=== PATIENT | female | born 1970 | race Caucasian/White ===

== ENCOUNTER 2017-03-06 11:00 | Emergency (ER) | payer BC ==
[2017-03-06 11:55] VITALS: BP 146/94
[2017-03-06] MEDS ORDERED: Iohexol 300* (CONTRAST) 10 ML SDV IV ONE (12:33)
--- NOTE | 2017-03-06 13:49 | RAD ---
INDICATION: RIGHT lower quadrant pain. Question diverticulitis. Nausea and vomiting. Fever. Bloating. COMPARISON: No relevant prior exams available on the [facility] for comparison. TECHNIQUE: Multidetector CT images were obtained from the lung bases to the ischial tuberosities with 71 mL Omnipaque 300 IV and oral contrast. Multiplanar reformation. REPORT: Unremarkable visualized inferior thorax. 1.2 cm maximum dimension sharply circumscribed hypodense lesion at the dome of the RIGHT posterior hepatic segment and similar morphology 0.7 cm subcapsular lesion at the LEFT lateral hepatic segment while nonspecific most likely representing cysts or hemangiomas. Negative for biliary dilatation. No CT abnormality of the gallbladder, pancreas, spleen. Negative for CT abnormality of the upper GI, small bowel, appendix visualized extending anterior and cephalad from the cecum with the tip seen at the LEFT parasagittal midline at the level of the pelvic inlet. Enteric contrast extends to the hepatic flexure of the colon. No CT abnormality of the colon. Negative for ascites or free air. Small fat-containing umbilical hernia without inflammatory change. Normal adrenal glands. Severe LEFT hydronephrosis is traced to a 0.9 cm ureteral pelvic junction stone. Associated perinephric inflammatory stranding and delayed LEFT nephrogram and pyelogram. Additional 0.5 cm LEFT mid pole calyceal stone and 0.5 cm lower pole calyceal stones. Simple cortical cyst lower pole RIGHT kidney. No suspicious focal renal lesions. Unremarkable ureters and distended urinary bladder as well as the anteverted uterus and adnexal regions. Negative for lymphadenopathy. Normal diameter abdominal aorta and iliac arteries. Physiologic distention of the IVC. Negative for suspicious osseous lesions. IMPRESSION: 1. Severe LEFT hydronephrosis is traced to a 0.9 cm ureteral pelvic junction stone. Associated perinephric inflammatory stranding and delayed LEFT nephrogram and pyelogram. Additional 0.5 cm LEFT mid pole calyceal stone and 0.5 cm lower pole calyceal stones. 2. Consider nonemergent RIGHT upper quadrant ultrasound to further assess the noted relative low suspicion focal hepatic lesions most likely representing cysts or hemangiomas.
--- NOTE | 2017-03-06 14:15 | UC ---
Abdominal Pain Female HPI - HPI Summary HPI Summary: LEFT SIDE ABDOMINAL PAIN X 4 DAYS NO RADIATION OF PAIN PAIN IS SEVER, WORSE WITH LYING DOWN, + NAUSEA , NO VOMITING, NO URINARY SX - History of Current Complaint Chief Complaint: UCAbdominalPain Stated Complaint: ABD PAIN Time Seen by Provider: 03/06/17 11:24 Hx Obtained From: Patient Hx Last Menstrual Period: 03/02/17 ?: No Onset/Duration: Gradual Onset, Lasting Days - 4, Still Present Timing: Constant Severity Initially: Moderate Severity Currently: Severe Location: Discrete At: LLQ Radiates: No Character: Colicy Aggravating Factor(s): Food, Movement Alleviating Factor(s): Nothing Associated Signs and Symptoms: Positive: Decreased Appetite, Nausea. Negative: Diaphoresis, Fever, Cough, Chest Pain, Dizzy, Back Pain, Constipation, Blood in Stool, Urinary Symptoms, Vaginal Bleeding, Vaginal Discharge, Vomiting, Diarrhea Allergies/Adverse Reactions: Allergies Allergy/AdvReac Type Severity Reaction Status Date / Time No Known Allergies Allergy Verified 03/06/17 11:12 Home Medications: Home Medications Butalb/Acetamin/Caff TAB* [Fioricet TAB*] 1 tab PO Q6H PRN 03/06/17 [History Confirmed 03/06/17] Digestive Bitters 03/06/17 [History] Tretinoin [Retin-A] 0.1 % EX 03/06/17 [History] Vit B12 03/06/17 [History] PMH/Surg Hx/FS Hx/Imm Hx Previously Healthy: Yes - Surgical History Surgical History: Yes Surgery Procedure, Year, and Place: UTERINE ABLATION - Family History Known Family History: Negative: Blood Disorder - Social History Alcohol Use: None Substance Use Type: None Smoking Status (MU): Never Smoked Tobacco Review of Systems Constitutional: Negative Skin: Negative Eyes: Negative ENT: Negative Respiratory: Negative Gastrointestinal: Abdominal Pain, Nausea Genitourinary: Negative Is Patient Immunocompromised?: No All Other Systems Reviewed And Are Negative: Yes Physical Exam Triage Information Reviewed: Yes Appearance: Well-Nourished, Pain Distress Vital Signs: Initial Vital Signs Temp 99.6 F 03/06/17 11:15 Pulse 78 03/06/17 11:15 Resp 16 03/06/17 11:15 BP 146/94 03/06/17 11:15 Pulse Ox 100 03/06/17 11:15 Vital Signs Reviewed: Yes Eyes: Positive: Conjunctiva Clear ENT: Positive: Normal ENT inspection, Hearing grossly normal, Pharynx normal Neck exam: Normal Neck: Positive: Supple, Nontender, No Lymphadenopathy Respiratory: Positive: Chest non-tender, Lungs clear, Normal breath sounds Cardiovascular: Positive: RRR, No Murmur, Pulses Normal Abdomen Description: Positive: Soft, Other: - TENDERNESS LLQ. Negative: CVA Tenderness (R), CVA Tenderness (L), Distended, Guarding Bowel Sounds: Positive: Present Musculoskeletal: Positive: Strength Intact, ROM Intact, No Edema Skin Exam: Normal Diagnostics - Laboratory Diagnostic Studies Completed/Ordered: CT ABD/PELVIC. 1. Severe LEFT hydronephrosis is traced to a 0.9 cm ureteral pelvic junction stone. Associated perinephric inflammatory stranding and delayed LEFT nephrogram and pyelogram. Additional 0.5 cm LEFT mid pole calyceal stone and 0.5 cm lower pole calyceal stones. 2. Consider nonemergent RIGHT upper quadrant ultrasound to further assess the noted. relative low suspicion focal hepatic lesions most likely representing cysts or. hemangiomas. Abd Pain Female Course/Dx - Course Course Of Treatment: WILL HAVE THE PT. GO TO [facility] FOR [place]AL AND TX - Differential Dx/Diagnosis Provider Diagnoses: LEFT RENAL COLIC. HYDRONEPHROSIS LEFT KIDNEY Discharge - Discharge Plan Condition: Stable Disposition: HOME Patient Education Materials: Renal Colic (ED), Hydronephrosis (ED) Referrals: Salena Wilson MD [Primary Care Provider] - Additional Instructions: CT ABD/ PELVIC : 1. Severe LEFT hydronephrosis is traced to a 0.9 cm ureteral pelvic junction stone. Associated perinephric inflammatory stranding and delayed LEFT nephrogram and pyelogram. Additional 0.5 cm LEFT mid pole calyceal stone and 0.5 cm lower pole calyceal stones. 2. Consider nonemergent RIGHT upper quadrant ultrasound to further assess the noted relative low suspicion focal hepatic lesions most likely representing cysts or hemangiomas. PLEASE GO TO [facility] FOR EVAL AND TX OF KIDNEY STONE LEFT SIDE , LARGE STONE 9 MM , + FLUID IN YOUR LEFT KIDNEY DUE TO OBSTRUCTION
== END 2017-03-06 14:15 | disposition home or self-care (01) ==
LOC: UCCORT 11:00
DX: N13.2 Hydronephrosis with renal and ureteral calculous obstruction (principal); Z32.02 Encounter for pregnancy test, result negative; R11.0 Nausea
CPT/HCPCS: 74177; 81003; 84702; 99202; G0463; Q9967

== ENCOUNTER 2017-03-06 15:26 | Day surgery (SDC) | payer BC ==
[2017-03-06] MEDS ORDERED: NS 0.9% 1000 ML* 1,000 ML IV ONE (15:41)
[2017-03-06] MEDS ORDERED: cefTRIAXone(*) 1 GM in NS 0.9% 50 ML* 50 ML IVPB ONE (16:44)
[2017-03-06 16:48] LABS: ABS Basophils 0 10^3/ul (0-0.2); ABS Eosinophils 0 10^3/ul (0-0.6); ABS Lymphocytes 1.1 10^3/ul (1.0-4.8); ABS Monocytes 0.5 10^3/ul (0-0.8); ABS Neutrophils 6.6 10^3/ul (1.5-7.7); ABS Nucleated RBC 0 10^3/ul; Eosinophil % 0.5 % (0-6); Hematocrit 38 % (35-47); Lymphocyte % 13.2 % (25-47); Mean Corpuscular HGB Conc 34 g/dl (31-36); Mean Corpuscular Hemoglobin 30 pg (27-31); Mean Corpuscular Volume 88 fL (80-97); Mean Platelet Volume 8 um3 (7.4-10.4); Nucleated Red Blood Cells % 0.1; Platelet Count 293 10^3/ul (150-450); Red Blood Count 4.34 10^6/ul (4.0-5.4); Red Cell Distribution Width 13 % (10.5-15); White Blood Count 8.3 10^3/ul (3.5-10.8)
[2017-03-06] MEDS ORDERED: cefTRIAXone(*) 2 GM in NS 0.9% 100 ML* 100 ML IVPB ONE (16:51)
[2017-03-06 17:03] LABS: EGFR Non-African American 45.7 (>60)
[2017-03-06] MEDS ORDERED: cefTRIAXone(*) 2 GM ADDV.VIAL IVPB ONE (17:12)
[2017-03-06] MEDS ORDERED: Iohexol 180 (CONTRAST) 10 ML SDV IV ONE (17:31)
[2017-03-06] MEDS ORDERED: Midazolam* 1 MG/ML 2 ML VIAL (2 MG) ONE (17:38)
[2017-03-06] MEDS ORDERED: Propofol* 10 MG/ML 20 ML BTL IV PUSH ONE (17:38)
[2017-03-06] MEDS ORDERED: fentaNYL* 50 MCG/ML 2 ML VIAL (100 MCG VIAL) ONE (17:38)
[2017-03-06] MEDS ORDERED: Ondansetron INJ* 2 MG/ML VIAL ONE (18:06)
[2017-03-06] MEDS ORDERED: DiMENhydriNATE IV* 50 MG/ML VIAL IV PUSH PRN (18:21)
[2017-03-06] MEDS ORDERED: Naloxone* 0.4 MG/ML 1 ML VIAL IV PRN (18:21)
[2017-03-06] MEDS ORDERED: fentaNYL* 50 MCG/ML 2 ML VIAL (100 MCG VIAL) IV PRN (18:21)
[2017-03-06] MEDS ORDERED: HYDROcodone/ACETAMIN 5-325 MG* 1 TAB PO PRN (18:21)
[2017-03-06] MEDS ORDERED: oxyCODONE/Acetamin 5/325 MG* TAB PO PRN ×2 (18:21→18:52)
[2017-03-06] MEDS ORDERED: Ondansetron INJ* 2 MG/ML VIAL IV PRN (18:21)
[2017-03-06] MEDS ORDERED: HYDROmorphone INJ* 1 MG/ML CARPUJECT SYRINGE IV PRN (18:21)
[2017-03-06] MEDS ORDERED: Gentamicin ADULT (*) 160 MG in NS 0.9% 100 ML* 100 ML IVPB ONE (19:00)
[2017-03-06] MEDS ORDERED: CMCS: Solifenacin(NF) 5 MG TAB PO ONE (19:00)
[2017-03-06] MEDS ORDERED: LR IV SCH (19:30)
--- NOTE | 2017-03-06 19:57 | ED ---
Eusebio Chew Angela, scribed for Unique Eric MD on 03/06/17 at 1556 . Abdominal Pain/Female - HPI Summary HPI Summary: This pt is a 46 y/o female presenting to [facility] referred by [facility] for a kidney stone. Pt had a CT abdomen/pelvis with oral and IV contrast at Urgent Care and was found to have a 9 mm stone at the LEFT UPJ with hydronephrosis. (Note indication for the CT states RLQ abd pain, but personal communication with Dr. Cadena and pt confirms that pt's pain is LLQ, and Dr. Cadena's presumptive dx was diverticulitis, which is why he ordered the CT with oral and IV contrast). She reports she woke up 3 days ago (on early Sunday03/03/17) with sharp pain, got up and thought she was constipated so she went to the bathroom. She took motrin and went to sleep that day, but notes she didn't sleep well. Pt woke up again at 06:00 AM on Sunday03/03/17 and vomited 3 times. She states it was the "most painful Sunday." Sunday (2 days ago) and Sunday (yesterday) she didn 't feel well but notes her pain improved. Today this morning pt went to the gym but was not feeling great. At work today she had localized pain, nausea, and felt "feverish." Pt decided to go to Urgent Care to check out her pain. Denies vomiting today. Today pt had Motrin at around 09:30 am. She has not eaten anything all day. She had oral contrast for the CT approx 11:30am. 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 PMHx none. LMP: 3 days ago (she notes it only lasted 2 days). Pt had a uterine ablation and the bleeding is irregular. Pt is currently on Retin-A, B12, and multivitamins. - History of Current Complaint Chief Complaint: EDFlankPain Stated Complaint: LEFT FLANK PAIN Time Seen by Provider: 03/06/17 15:41 Hx Obtained From: Patient Hx Last Menstrual Period: pt had an ablation done in Feb. and has not gotten one yet ?: No Onset/Duration: Gradual Onset, Lasting Days, Still Present Timing: Constant Severity Initially: Moderate Severity Currently: Mild Pain Intensity: 0 Location: Discrete At: LLQ, Flank - left Radiates: No Character: Sharp Aggravating Factor(s): Nothing Alleviating Factor(s): Nothing Associated Signs and Symptoms: Positive: Fever, Nausea. Negative: Vomiting Allergies/Adverse Reactions: Allergies Allergy/AdvReac Type Severity Reaction Status Date / Time No Known Allergies Allergy Verified 03/06/17 15:37 PMH/Surg Hx/FS Hx/Imm Hx Previously Healthy: Yes Endocrine/Hematology History: Denies: Hx Diabetes Cardiovascular History: Denies: Hx Hypertension History: Denies: Hx Dialysis, Hx Renal Disease - Surgical History Surgery Procedure, Year, and Place: UTERINE ABLATION. A few moles removed. 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 Negative: Vomiting Positive: flank pain - left Skin: Negative Neurological: Negative Psychological: Normal All Other Systems Reviewed And Are Negative: Yes Physical Exam - Summary Physical Exam Summary: Appearance: Well-appearing, mild pain distress, Well-nourished, pt sits calmly in the exam room, points with one finger at LLQ to indicate the area of pain Skin: Warm, color reflects adequate perfusion Head: Normal Head/Face inspection Eyes: Conjunctiva clear ENT: Normal ENT inspection Neck: Supple, no nodes, no JVD Respiratory: Lungs clear, Normal breath sounds, no respiratory distress Cardio: RRR, No murmur, pulses normal, brisk capillary refill Abdomen: soft. Mild tenderness on the left mid abdomen. Left flank tenderness. No masses, no guarding, no rebound Bowel sounds: present Musculoskeletal: Strength Intact/ ROM intact. No calf tenderness. No edema. Neuro: Alert, muscle tone normal, facial symmetry, speech normal, sensory/motor intact Psychological: Normal Triage Information Reviewed: Yes Vital Signs On Initial Exam: Initial Vitals Temp Pulse Resp BP Pulse Ox 98.6 F 75 16 145/99 100 03/06/17 15:32 03/06/17 15:32 03/06/17 15:32 03/06/17 15:32 03/06/17 15:32 Vital Signs Reviewed: Yes Diagnostics - Vital Signs Vital Signs Temp Pulse Resp BP Pulse Ox 03/06/17 15:32 98.6 F 75 16 145/99 100 - Laboratory Lab Results: Lab Results 03/06/17 03/06/17 03/06/17 Range/Units 16:28 16:28 16:28 WBC 8.3 (3.5-10.8) 10^3/ul RBC 4.34 (4.0-5.4) 10^6/ul Hgb 13.0 (12.0-16.0) g/dl Hct 38 (35-47) % MCV 88 (80-97) fL MCH 30 (27-31) pg MCHC 34 (31-36) g/dl RDW 13 (10.5-15) % Plt Count 293 (150-450) 10^3/ul MPV 8 (7.4-10.4) um3 Neut % (Auto) 79.8 (38-83) % Lymph % (Auto) 13.2 L (25-47) % Starr % (Auto) 6.1 (1-9) % Eos % (Auto) 0.5 (0-6) % Baso % (Auto) 0.4 (0-2) % Absolute Neuts (auto) 6.6 (1.5-7.7) 10^3/ul Absolute Lymphs (auto) 1.1 (1.0-4.8) 10^3/ul Absolute Monos (auto) 0.5 (0-0.8) 10^3/ul Absolute Eos (auto) 0 (0-0.6) 10^3/ul Absolute Basos (auto) 0 (0-0.2) 10^3/ul Absolute Nucleated RBC 0 10^3/ul Nucleated RBC % 0.1 Sodium 136 (133-145) mmol/L Potassium 3.9 (3.5-5.0) mmol/L Chloride 101 (101-111) mmol/L Carbon Dioxide 28 (22-32) mmol/L Anion Gap 7 (2-11) mmol/L BUN 17 (6-24) mg/dL Creatinine 1.26 H (0.51-0.95) mg/dL Est GFR ( Amer) 58.8 (>60) Est GFR (Non-Af Amer) 45.7 (>60) BUN/Creatinine Ratio 13.5 (8-20) Glucose 84 (70-100) mg/dL Lactic Acid 1.5 (0.5-2.0) mmol/L Calcium 9.3 (8.6-10.3) mg/dL Total Bilirubin 0.80 (0.2-1.0) mg/dL AST 16 (13-39) U/L ALT 8 (7-52) U/L Alkaline Phosphatase 46 (34-104) U/L C-Reactive Protein 14.72 H (< 5.00) mg/L Total Protein 7.2 (6.4-8.9) g/dL Albumin 4.2 (3.2-5.2) g/dL Globulin 3.0 (2-4) g/dL Albumin/Globulin Ratio 1.4 (1-3) Beta HCG, Quant < 0.60 mIU/mL Result Diagrams: 03/06/17 16:28 03/06/17 16:28 Lab Statement: Any lab studies that have been ordered have been reviewed, and results considered in the medical decision making process. - CT Abdomen/Pelvis CT CT Interpretation: Positive (See Comments) - IMPRESSION: 1. Severe LEFT hydronephrosis is traced to a 0.9 cm ureteral pelvic junction stone. Associated perinephric inflammatory stranding and delayed LEFT nephrogram and pyelogram. Additional 0.5 cm LEFT mid pole calyceal stone and 0.5 cm lower pole calyceal stones. 2. Consider nonemergent RIGHT upper quadrant ultrasound to further assess the noted relative low suspicion focal hepatic lesions most representing cysts or hemangiomas. Dr. Eric has reviewed this radiology report. CT Interpretation Completed By: Radiologist Re-Evaluation - Re-Evaluation First Eval Re-Evaluation Time: 16:37 Comment: I discussed plan for OR admission with the pt, for Dr. Arriola to place a ureteral stent. Pt is agreeable. Abdominal Pain Fem Course/Dx - Course Course Of Treatment: Pt medications reviewed this visit. High blood pressure noted. Abdomen/pelvis CT with oral and IV contrast done at [facility], shows severe LEFT hydronephrosis is traced to a 0.9 cm ureteral pelvic junction stone. Associated perinephric inflammatory stranding and delayed LEFT nephrogram and pyelogram. Pt with 2 additional calyceal stones. Pt is afebrile , wbc count is normal and urine does not appear infected by UA. Pt is also made aware of additional findings regarding her liver and the need for outpatient elective US for further evaluation. I discussed pt care with Dr. Arriola, urologist, who will take the pt to the OR for a stent. He wanted to know the pt's NPO status. Pt states the last time she ate was yesterday and the last time she had something to drink was today at noon (CT contrast). Pt is to be NPO from now on. Pt will be given Ceftriaxone 2 grams IV. - Diagnoses Differential Diagnosis: Positive: Bowel Obstruction, Diverticulitis, Renal Colic , Urinary Tract Infection Provider Diagnoses: Elevated blood pressure reading without diagnosis of hypertension, Hydronephrosis, Left UPJ stone - Provider Notifications Discussed Care Of Patient With: Marcell Arriola Time Discussed With Above Provider: 16:30 Instructed by Provider To: Other - I discussed pt care with Dr. Arriola, urologist , who will take the pt to the OR today for a stent. He wants to know the pt's NPO status. Discharge - Discharge Plan Condition: Stable Disposition: ADMITTED TO [facility]charge Disposition Comment: by Dr. Arriola to the OR. The documentation as recorded by the Eusebio schuster Angela accurately reflects the service I personally performed and the decisions made by me, Unique Eric MD.
[2017-03-06 20:06] VITALS: BP 131/88
--- NOTE | 2017-03-06 20:44 | RAD ---
CPT II Codes: 6045F INDICATION: Left-sided hydronephrosis presence of multiple renal calculi TECHNIQUE: Intraoperative fluoroscopy was provided during retrograde nephrostogram and left ureteral stent placement. FINDINGS: 9 spot films depict retrograde nephrostogram, multiple renal calculi in the proximal ureter and collecting system as well as moderate to severe hydronephrosis. The proximal half left ureteral stent is anatomically positioned. Fluoroscopy time: 10 Seconds IMPRESSION: As above.
--- NOTE | 2017-03-06 21:31 | RAD ---
INDICATION: Left renal stent placement COMPARISON: None TECHNIQUE: 2 views the abdomen were obtained. FINDINGS: The left ureteral stent is anatomically aligned. The proximal most portion of the ureteral stent is looped within a left lower pole calyx. Overlying the proximal ureter there is a 7 mm calcification corresponding to the numerous calcifications seen on the preoperative CTA. IMPRESSION: ANATOMIC ALIGNMENT OF LEFT URETERAL STENT. INCIDENTALLY NOTED IS THE PROXIMAL PORTION OF THE STENT IS LOOPED WITHIN A LOWER POLE CALYX.
--- NOTE | 2017-03-06 21:55 | HP ---
CC: Dr. Salena Wilson * ADMITTING HISTORY AND PHYSICAL: DATE OF ADMISSION: 03/06/17 ADMITTING DIAGNOSES: 1. Calculus left ureteropelvic junction. 2. Severe left hydronephrosis. 3. Additional left renal calculi. PLANNED PROCEDURE: Today is left stent insertion (to be followed in near future by lithotripsy). SURGEON: Dr. 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 She is being brought in for urgent left stent insertion to be followed in the near future by lithotripsy. PAST MEDICAL HISTORY: Significant for acne. MEDICATIONS ON ADMISSION: Retin-A for acne. ALLERGIES: No known drug allergies. REVIEW OF SYSTEMS: She denies any chest pain or shortness of breath. There is no history of diabetes mellitus or any other major systemic illness. PHYSICAL EXAMINATION GENERAL: Reveals a pleasant healthy-appearing lady. VITAL SIGNS: Blood pressure is 115/73, pulse 75 per minute and regular, temperature 37 degrees, respirations 16 per minute, oxygen saturation 100% on room air. LUNGS: Clear bilaterally. CARDIOVASCULAR: Regular rate and rhythm. S1, S2. ABDOMEN: Soft with left flank tenderness. DIAGNOSTIC STUDIES/LABORATORY DATA: I reviewed the CT scan, which reveals a fairly large at least 10 to 12 mm calculus at the left ureteropelvic junction with additional left renal calculi. IMPRESSION: I discussed the situation in detail with Dr. Diaz Hsu. I also explained the possibility of this being related to a congenital ureteropelvic junction obstruction although that will be difficult to delineate because of the presence of the large calculus at the UPJ at the present time. I also explained the procedure of left stent insertion (to be followed by lithotripsy) and explained that there is a small chance that I may not be able to safely place the stent because of the very large size of the calculus, in that case she would require a temporary left nephrostomy tube to be followed by lithotripsy. PLAN: Planned procedure is left stent insertion (to be followed by shockwave lithotripsy). [id number]/[facility] #: [id number] [facility]
--- NOTE | 2017-03-07 23:01 | OP ---
CC: Salena Wilson MD * DATE OF OPERATION: 03/06/17 - SDS DATE OF : 70 SURGEON: Dr. Arriola. ANESTHESIA: General. ANESTHESIOLOGIST: Dr. Stinson. PRE-OP DIAGNOSES: 1. Severe left hydronephrosis. 2. Obstructing calculus, left ureteropelvic junction. 3. Left renal calculi. POST-OP DIAGNOSES: 1. Severe left hydronephrosis. 2. Obstructing calculus, left ureteropelvic junction. 3. Left renal calculi. OPERATIVE PROCEDURE: Cystoscopy, left retrograde pyelogram, left ureteral calculus manipulation, and left stent insertion. COMPLICATIONS: None. POSTOPERATIVE CONDITION: Stable. STENT USED: 6-[place] stent, left ureter. OPERATIVE FINDINGS: High-grade obstruction secondary to large calculus impacted at left ureteropelvic junction. INDICATIONS: Mag Hsu is a 46-year-old lady who was evaluated for obstructing calculus of the left uretero-pelvic junction. In addition, she has 2 left renal calculi and is now being brought in for urgent left stent insertion because of the findings of severe left hydronephrosis and the large calculus. She will require lithotripsy in the near future. DESCRIPTION OF PROCEDURE: After induction of general anesthesia, the patient was placed in dorsal lithotomy position. Sequential compression devices were in place and functioning. Initial cystoscopy revealed a normal-appearing bladder with some changes suggestive of cystitis noted throughout the bladder wall. A guidewire was introduced into the left ureter. Retrograde pyelogram revealed limited visualization due to persistent oral and intravenous contrast from the prior CT scan. Left hydronephrosis was demonstrated. The open-ended catheter was advanced to the level of the ureteropelvic junction, so the calculus could be manipulated proximally, which was done. Once this was done, I was able to place a 6-[place] stent under fluoroscopic monitoring with good proximal and distal positioning obtained. The bladder was emptied. The patient tolerated the procedure satisfactorily and was transferred back to the recovery area in stable condition. [id number]/[facility] #: [id number] [facility]
== END 2017-03-06 17:55 | disposition home or self-care (01) ==
LOC: ED 15:26 → OR 17:55
PROVIDERS: ATTEND Urology
DX: N13.2 Hydronephrosis with renal and ureteral calculous obstruction (principal); R10.32 Left lower quadrant pain; R03.0 Elevated blood-pressure reading, without diagnosis of hypertension; R50.9 Fever, unspecified; R11.0 Nausea
CPT/HCPCS: 36415; 74018; 74420; 80053; 83605; 84702; 85025; 86140; 96374; 96376; 99283; C1876; J0696; J1580; J2250; J2405; J2704; J3010

== ENCOUNTER 2017-03-19 12:54 | Day surgery (SDC) | payer BC ==
[~2017-03-19 12:54] MED LIST: Buffered Lidocaine 0.9% SYRIN* 5 ML/SYR SYRINGE INTRADERM ONE; Dexamethasone IV* 4 MG/ML 1 ML (4 MG) IV SLOW PU ONE; Famotidine IV* 10 MG/ML 2 ML (20 mg) IV ONE
[2017-03-19] MEDS ORDERED: Dexamethasone IV* 4 MG/ML 1 ML (4 MG) ONE (13:20)
[2017-03-19] MEDS ORDERED: cefTRIAXone(*) 2 GM ADDV.VIAL IVPB ONE (13:20)
[2017-03-19] MEDS ORDERED: Famotidine IV* 10 MG/ML 2 ML (20 mg) ONE (13:20)
--- NOTE | 2017-03-19 13:45 | RAD ---
INDICATION: ESWL COMPARISON: March 06, 2017 TECHNIQUE: A single view of the abdomen is submitted. FINDINGS: Bones: There are no acute bony findings. Soft tissues: The soft tissues appear normal. The psoas margins are sharp. Bowel gas pattern: Normal Calcifications: There are multiple left-sided renal calculi. The dominant calculus is near the UVJ and measures 9 mm. Upper and lower pole calculi are also present. Other: There is a left ureteral stent in expected position IMPRESSION: LEFT-SIDED NEPHROLITHIASIS
[2017-03-19] MEDS ORDERED: fentaNYL* 50 MCG/ML 2 ML VIAL (100 MCG VIAL) ONE (14:16)
[2017-03-19] MEDS ORDERED: Midazolam* 1 MG/ML 2 ML VIAL (2 MG) ONE (14:16)
[2017-03-19] MEDS ORDERED: Propofol* 10 MG/ML 20 ML BTL IV PUSH ONE (14:17)
[2017-03-19] MEDS ORDERED: Ondansetron INJ* 2 MG/ML VIAL ONE (14:17)
[2017-03-19] MEDS ORDERED: Naloxone* 0.4 MG/ML 1 ML VIAL IV PRN (14:49)
[2017-03-19] MEDS ORDERED: DiMENhydriNATE IV* 50 MG/ML VIAL IV PUSH PRN (14:49)
[2017-03-19] MEDS ORDERED: fentaNYL* 50 MCG/ML 2 ML VIAL (100 MCG VIAL) IV PRN (14:49)
[2017-03-19] MEDS ORDERED: Furosemide IV* 10 MG/ML 2 ML VIAL (20 MG) ONE (15:08)
[2017-03-19 16:33] VITALS: BP 114/73
--- NOTE | 2017-03-19 17:46 | RAD ---
INDICATION: Renal calculi. COMPARISON: Correlation is made with a prior CT of the abdomen and pelvis from March 06, 2017 and a prior KUB from March 19, 2017 from 5 hours earlier. TECHNIQUE: Frontal supine films of the abdomen were obtained. FINDINGS: The small bowel and colon appear nondistended. There is a left ureteral stent catheter present which appears unchanged. There are multiple left renal calculi. The previously noted dominant calculus at the left ureteropelvic junction appears fragmented. IMPRESSION: MULTIPLE LEFT RENAL CALCULI NOTED.
--- NOTE | 2017-03-20 09:44 | OP ---
CC: Dr. Salena Wilson * DATE OF OPERATION: 03/19/17 - SDS DATE OF : 70 SURGEON: Dr. Arriola. ANESTHESIOLOGIST: Dr. Kunz. ANESTHESIA: General. PRE-OP DIAGNOSES: Left ureteral calculus and left renal calculi. POST-OP DIAGNOSES: Left ureteral calculus and left renal calculi. OPERATIVE PROCEDURE: 1. Shock wave lithotripsy of left ureteral calculus. 2. Shock wave lithotripsy of left renal calculi. COMPLICATIONS: None. PREOPERATIVE CONDITION: Stable. INDICATIONS: Mag Hsu is a 46-year-old lady who had undergone urgent left stent insertion because of a large obstructing calculus in the left ureteropelvic junction. In addition, she has left renal calculi and is now being brought in for shock wave lithotripsy. DESCRIPTION OF PROCEDURE: After induction of general anesthesia, the patient was placed on the lithotripsy table in supine position. The dominant calculus in the area of the left urethropelvic junction was first localized using fluoroscopy. Shock wave lithotripsy was commenced at a rate of 90 shocks per minute. Periodic imaging revealed good localization and fragmentation and a total of 1800 shocks were delivered to this calculus. Next attention was directed to the calculi in the left kidney. These were separately identified using fluoroscopy and were targeted with shock wave lithotripsy at a rate of 60 shocks per minute. 800 shocks were delivered to these two calculi together and good fragmentation was observed. The patient tolerated the procedure satisfactorily and was transferred back to the recovery area in stable condition. [id number]/[facility] #: [id number] [facility]
== END 2017-03-19 16:45 | disposition home or self-care (01) ==
LOC: OR 12:54
PROVIDERS: ATTEND Urology
DX: N13.2 Hydronephrosis with renal and ureteral calculous obstruction (principal)
CPT/HCPCS: 74018; 81025; J0696; J1100; J1940; J2250; J2405; J2704; J3010

== ENCOUNTER 2019-04-07 18:16 | Emergency (ER) | payer BC ==
--- OUTSIDE RECORDS SUMMARY | 2019-04-07 18:41 | XMS REPORT | Continuity of Care Document ---
:1970 External Reference #:[id number] Author Name Bhavani Cohen PA Address [address] [address] Care Team Providers Name Role Phone Anthony Pandya MD - Urology Care Team Information Chain Tender [phone] Problems Active Problems Provider Date Vitamin D deficiency Salena Wilson MD Onset: 05/10/2017 Migraine with typical aura Salena Wilson MD Onset: 07/06/2017 Acne Salena Wilson MD Onset: 08/09/2018 Social History Type Date Description Comments Sex Unknown Tobacco Use Start: Unknown Never Smoked Cigarettes ETOH Use Occasionally consumes alcohol Tobacco Use Start: Unknown Patient has never smoked Smoking Status Reviewed: 08/09/18 Patient has never smoked Allergies, Adverse Reactions, Alerts Description No Known Drug Allergies Medications Active Medications SIG Qnty Indications Ordering Provider Date Retin-A apply to face 45gm L70.0 Salena Wilson, 08/09/2018 0.1% Cream once daily Ondansetron 1 po at onset of 60tabs G43.109 Salena Wilson, 08/09/2018 8mg Tablets nausea every 8 MD Dispers hours prn Butalbital/Acetaminop 1 tap by mouth q2 60tabs G43.109 Salena Wilson, hen/Caffeine hours as needed headache 50-325-40mg Tablets Magnesium Citrate not sure on dose Salena Wilson, 03/01/2018 100mg MD Tablets Multivitamin Adult 1 by mouth every Unknown day Tablets Calcium Carbonate 2 by mouth daily Unknown 500mg Chewtabs Vitamin D 1 by mouth every Unknown 1000Unit day Tablets Immunizations CPT Code Status Date Vaccine Reaction Lot # [id number] Given 03/17/2011 Tdap (Adacel) Ages 7 And Above VIS DATE 01/07/08 Only [id number] Refused 06/01/2017 Afluria Or Fluvirin Flu Vac Intramuscular Vital Signs Date Vital Result Comment 02/21/2019 8:19am Body Temperature 99.5 F tympanic Weight 129.00 lb Heart Rate 72 /min BP Systolic 126 mmHg BP Diastolic 80 mmHg Respiratory Rate 16 /min Height 62.50 inches 5'2.50" BMI (Body Mass Index) 23.2 kg/m2 08/09/2018 1:11pm Weight 123.00 lb Heart Rate 78 /min BP Systolic 108 mmHg BP Diastolic 68 mmHg Respiratory Rate 18 /min Height 62.50 inches 5'2.50" O2 % BldC Oximetry 98 % Ra BMI (Body Mass Index) 22.1 kg/m2 Results Test Acquired Date Facility Test Result H/L Range Note Laboratory test finding 02/21/2019 [facility] <pending> Procedures Date Code Description Status 08/14/2017 70890694 Mammogram Completed 07/20/2016 [id number] Mammogram Completed 06/05/2014 [id number] Mammogram Completed Medical Devices Description No Information Available Encounters Type Date Location Provider Dx Diagnosis Office Visit 02/21/2019 8:15a [facility] Bhavani Cohen PA L60.1 Onycholysis Assessments Date Code Description Provider 02/21/2019 L60.1 Onycholysis Bhavani Cohen PA Plan of Treatment Future Appointment(s):08/15/2019 1:00 pm - Salena Wilson MD at [facility]02/21/2019 - Bhavani Cohen PAL60.1 OnycholysisComments:BL great toes with white line distally, L great toe with line laterally ? etiology - may be result of certain shoes, viral infectionThis should slowly grow out with time, watch for healthy nail at the bases, can take several monthsSuggest filing nails as needed, avoiding trauma/irritants/cosmetics, keeping nails dryCall with questions/ concernsFollow up:Prn Functional Status Description No Information Available Mental Status Description No Information Available Referrals Description No Information Available
--- OUTSIDE RECORDS SUMMARY | 2019-04-07 18:41 | XMS REPORT | Continuity of Care Document ---
:1970 External Reference #:[id number] Author Name Satya Diaz M.D (transmitted by agent of provider Iris Menezes) Address [address] [place] [address] Care Team Providers Name Role Phone Salena Wilson MD Care Team Information Chief Wellness Officer [phone] Salena Wilson MD - Family Medicine Care Team Information Chief Wellness Officer [phone] Problems Description No Information Available Social History Type Date Description Comments Sex Unknown Tobacco Use Start: Unknown Never Smoked Cigarettes ETOH Use Current Alcohol Use - 1-3 Days A Week. Recreational Drug Use Never Used Drugs Allergies, Adverse Reactions, Alerts Description No Known Drug Allergies Medications Active Medications SIG Qnty Indications Ordering Provider Date Retin-A 0.05% Unknown Cream Ondansetron 4mg Unknown Tablets Dispers Immunizations Description No Information Available Vital Signs Date Vital Result Comment 04/03/2019 8:06am Weight 123.00 lb Height 62 inches 5'2" BMI (Body Mass Index) 22.5 kg/m2 BP Systolic 123 mmHg BP Diastolic 85 mmHg Heart Rate 78 /min O2 % BldC Oximetry 99 % Body Temperature 98.1 F Monroe Score 9 Neck Circumference in inches 12.5 Pain Level 0 Results Description No Information Available Procedures Description No Information Available Medical Devices Description No Information Available Encounters Description No Information Available Assessments Description No Information Available Plan of Treatment No Information Available Functional Status Description No Information Available Mental Status Description No Information Available Referrals Description No Information Available
--- OUTSIDE RECORDS SUMMARY | 2019-04-07 18:41 | XMS REPORT | Continuity of Care Document ---
:1970 External Reference #:[id number] Author Name Satya Diaz M.D Address [address] [place] [address] Care Team Providers Name Role Phone Salena Wilson MD Care Team Information Order Selector [phone] Salena Wilson MD - Family Medicine Care Team Information Order Selector Problems Description No Information Available Social History Type Date Description Comments Sex Unknown Tobacco Use Start: Unknown Never Smoked Cigarettes Smoking Status Reviewed: 04/04/19 Never Smoked Cigarettes ETOH Use Current Alcohol [...] Oximetry 99 % Body Temperature 98.1 F Estelline Score 9 Neck Circumference in inches 12.5 [...]
[2019-04-07 18:53] VITALS: BP 134/78
[2019-04-07] MEDS ORDERED: Phenazopyridine TAB* 100 MG PO ONE (19:39)
[2019-04-07] MEDS ORDERED: Cephalexin CAP* 500 MG PO ONE (19:39)
--- NOTE | 2019-04-07 19:41 | UC ---
Complaint Female HPI - HPI Summary HPI Summary: 49-year-old woman comes in with a chief complaint of burning with urination urinary frequency for 2 days. Started to have some chills today and not feeling well. Patient does have a history of kidney stones she does not feel like there is any kidney stone going on she does not have any flank pain or abdominal pain. The symptoms remind her of urinary tract infection. - History Of Current Complaint Chief Complaint: UCGU Stated Complaint: URINARY Time Seen by Provider: 04/07/19 19:18 Hx Last Menstrual Period: 03/31/19 Pain Intensity: 0 - Allergies/Home Medications Allergies/Adverse Reactions: Allergies Allergy/AdvReac Type Severity Reaction Status Date / Time No Known Allergies Allergy Verified 04/07/19 18:49 PMH/Surg Hx/FS Hx/Imm Hx Previously Healthy: Yes GI/ History: Kidney Stones - Surgical History Surgical History: Yes Surgery Procedure, Year, and Place: UTERINE ABLATION- 2013- [facility]. lithotripsy r/t kidney stones 2017 - Family History Known Family History: Positive: Cardiac Disease - Mom's side, Respiratory Disease - Paternal grandfather: emphysema, Other - Alzheimer's disease Negative: Blood Disorder - Social History Alcohol Use: Occasionally Substance Use Type: None Smoking Status (MU): Never Smoked Tobacco Have You Smoked in the Last Year: No Review of Systems All Other Systems Reviewed And Are Negative: Yes Constitutional: Positive: Other - SEE HPI Skin: Positive: Negative Eyes: Positive: Negative ENT: Positive: Negative Respiratory: Positive: Negative Cardiovascular: Positive: Palpitations Gastrointestinal: Positive: Negative Genitourinary: Positive: Dysuria, Frequency, Urgency Motor: Positive: Negative Neurovascular: Positive: Negative Musculoskeletal: Positive: Negative Neurological/Mental Status: Positive: Negative Psychological: Positive: Negative Is Patient Immunocompromised?: No Physical Exam Triage Information Reviewed: Yes Appearance: No Pain Distress, Well-Nourished, Ill-Appearing - MILD Vital Signs: Initial Vital Signs Temp 98.1 F 04/07/19 18:50 Pulse 86 04/07/19 18:50 Resp 15 04/07/19 18:50 BP 134/78 04/07/19 18:50 Pulse Ox 100 04/07/19 18:50 Vital Signs Reviewed: Yes Eye Exam: Normal Eyes: Positive: Conjunctiva Clear Neck: Positive: Supple Respiratory: Positive: Lungs clear, Normal breath sounds, No respiratory distress Cardiovascular: Positive: RRR Abdomen Description: Positive: Nontender, Soft. Negative: CVA Tenderness (R), CVA Tenderness (L) Musculoskeletal: Positive: Strength Intact, ROM Intact Neurological: Positive: Alert, Muscle Tone Normal Psychological: Positive: Age Appropriate Behavior Skin Exam: Normal Complaint Female Dx - Differential Dx/Diagnosis Provider Diagnosis: UTI (urinary tract infection) Discharge ED - Sign-Out/Discharge Documenting (check all that apply): Patient Departure All imaging exams completed and their final reports reviewed: No Studies - Discharge Plan Condition: Stable Disposition: HOME Prescriptions: Cephalexin CAP* [Keflex CAP*] 500 mg PO TID #20 cap Phenazopyridine TAB* [Pyridium 100 mg TAB*] 100 mg PO TID PRN #8 tab PRN Reason: Pain - Mild Patient Education Materials: Urinary Tract Infection in Women (ED) Referrals: Salena Wilson MD [Primary Care Provider] - Additional Instructions: FOLLOW UP WITH YOUR DOCTOR IF NOT COMPLETELY IMPROVED. GO TO THE EMERGENCY DEPARTMENT IF WORSE; PAIN, FEVER, YOU FEEL ILL, SYMPTOMS OF A KIDNEY STONE OR ANY QUESTIONS OR CONCERNS. - Billing Disposition and Condition Condition: STABLE Disposition: Home
== END 2019-04-07 19:48 | disposition home or self-care (01) ==
LOC: UCCORT 18:16
DX: N39.0 Urinary tract infection, site not specified (principal)
CPT/HCPCS: 81003; 87077; 87086; 87186; 99212; A9270-GY; G0463